=== PATIENT | female | born 1995 | race American Indian/Alaskan Native ===

== ENCOUNTER 2018-05-16 22:13 | Emergency (ER) | payer OTHER, MEDICAID ==
[2018-05-16 22:28] VITALS: BP 127/95
--- NOTE | 2018-05-16 23:37 | XRay Report ---
FINAL REPORT PROCEDURE: XR ELBOW 2V RT TECHNIQUE: RIGHT elbow radiographs, including AP and lateral views. HISTORY: Right elbow pain COMPARISON: No prior studies are available for comparison. FINDINGS: Fracture (s) and/or Dislocation(s): None . Alignment: Normal . Joint space(s): Normal . Soft tissues: Normal . Bone mineralization: Normal . Foreign bodies: None . IMPRESSION: Normal Examination
--- NOTE | 2018-05-16 23:38 | XRay Report ---
FINAL REPORT PROCEDURE: XR RIBS UNILAT 2V RT TECHNIQUE: Unilateral rib radiographs, 2 views of the RIGHT ribs. HISTORY: right rib pain COMPARISON: No prior studies are available for comparison. FINDINGS: Lungs: Normal. Pleural space: Normal. Pneumothorax: None. Bony thorax/ribs: No significant abnormality. IMPRESSION: Normal Examination.
--- NOTE | 2018-05-16 23:39 | XRay Report ---
FINAL REPORT PROCEDURE: XR SPINE LUMBOSACRAL 2-3V TECHNIQUE: Lumbar spine radiographs, including AP, lateral, and lumbosacral spot views. CPT 70343 HISTORY: lower back pain COMPARISON: No prior studies are available for comparison. FINDINGS: Alignment: There is mild degree dextroscoliosis.. Vertebral body heights/Disk spaces: Normal. Fracture(s): None. Facets: Normal. Bone mineralization: Normal. IMPRESSION: Mild degree dextroscoliosis which may be secondary to spasm Otherwise negative study.
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
== END 2018-05-17 01:07 | disposition home or self-care (01) ==
LOC: ED 22:13
DX: S29.012A Strain of muscle and tendon of back wall of thorax, initial encounter (principal); R07.81 Pleurodynia; M25.521 Pain in right elbow; K21.9 Gastro-esophageal reflux disease without esophagitis; Z90.49 Acquired absence of other specified parts of digestive tract; Z88.6 Allergy status to analgesic agent; V89.2XXA Person injured in unspecified motor-vehicle accident, traffic, initial encounter; Y93.89 Activity, other specified; Y92.488 Other paved roadways as the place of occurrence of the external cause; Y99.8 Other external cause status
CPT/HCPCS: 72100; 99283

== ENCOUNTER 2019-04-26 02:53 | Emergency (ER) | payer MEDICAID ==
[2019-04-26 03:03] VITALS: BP 144/72
[2019-04-26] MEDS ORDERED: SUBLIMAZE IV ONE (03:17)
[2019-04-26] MEDS ORDERED: ZOFRAN IV ONE (03:17)
--- NOTE | 2019-04-26 03:20 | Emergency Department Report ---
HPI - General Chief Complaint: Chest Pain Time Seen by Provider: 04/26/19 03:12 - [facility] HPI: Room 10 The patient is a 23-year-old female presenting with chief complaint of chest pain. The patient states she awakened at approximately midnight to feel as t aram her heart was hurting. She feels a squeezing substernal chest pain has been constant. The patient states she thought it was heartburn so she drank milk but her pain did not improve. Patient admits to shortness of breath but denies fever or cough Location: [See above] Duration: [See above] Quality: [See above] Severity: [See above] Modifying factors: [see above] Context: [see above] Mode of transportation: [not driving] ED Past Medical Hx - Past Medical History Previous Medical History?: Yes Hx GERD: Yes Hx Sickle Cell Disease: Yes - Surgical History Past Surgical History?: Yes Hx Cholecystectomy: Yes - Family History Family history: no significant - Social History Smoking Status: Never Smoker Substance Use Type: None (denies illicit drug use) - Medications Home Medications: Home Medications Medication Instructions Recorded Confirmed Last Taken Type Amoxicillin [Trimox CAP] 500 mg PO BID #14 capsule 02/25/16 Unknown Rx Cyclobenzaprine [Flexeril] 10 mg PO TID PRN 5 Days #15 tablet 05/17/18 Unknown Rx Famotidine [Pepcid] 20 mg PO BID #30 tablet 04/26/19 Unknown Rx HYDROcodone/APAP 5-325 [Lutts 1 - 2 each PO Q6HR PRN #14 tablet 04/26/19 Unknown Rx 5/325] ED Review of Systems ROS: Stated complaint: CP Other details as noted in HPI Constitutional: denies: fever Eyes: denies: eye pain ENT: denies: throat pain Respiratory: shortness of breath Cardiovascular: chest pain Endocrine: no symptoms reported Gastrointestinal: denies: abdominal pain Genitourinary: denies: dysuria Musculoskeletal: denies: back pain Neurological: denies: headache Physical Exam - Physical Exam Vital Signs: Vital Signs 04/26/19 02:56 Temperature 98.6 F Pulse Rate 89 Respiratory 18 Rate Blood Pressure 144/72 O2 Sat by Pulse 100 Oximetry Physical Exam: GENERAL: The patient is well-developed well-nourished female lying on stretcher not appearing to be in acute distress. [] HEENT: Normocephalic. Atraumatic. Extraocular motions are intact. Patient has moist mucous membranes. NECK: Supple. Trachea midline CHEST/LUNGS: Clear to auscultation. There is no respiratory distress noted. HEART/CARDIOVASCULAR: Regular. There is no tachycardia. There is no gallop rub or murmur. ABDOMEN: Abdomen is soft, nontender. Patient has normal bowel sounds. There is no abdominal distention. SKIN: There is no rash. There is no edema. There is no diaphoresis. NEURO: The patient is awake, alert, and oriented. The patient is cooperative. The patient has no focal neurologic deficits. The patient has normal speech MUSCULOSKELETAL: There is no evidence of acute injury. ED Course Vital Signs 04/26/19 02:56 Temperature 98.6 F Pulse Rate 89 Respiratory 18 Rate Blood Pressure 144/72 O2 Sat by Pulse 100 Oximetry - Reevaluation(s) Reevaluation #1: 04/26/19 05:55 Patient asleep but easily awakened and results discussed ED Medical Decision Making - Lab Data Result diagrams: 04/26/19 03:36 04/26/19 03:36 Laboratory Tests 04/26/19 04/26/19 04/26/19 03:32 03:36 03:36 WBC 6.6 RBC 3.87 Hgb 10.8 Hct 31.3 MCV 81 MCH 28 MCHC 34 RDW 14.4 Plt Count 110 L Lymph % (Auto) 25.9 [place] % (Auto) 7.6 H Eos % (Auto) 2.1 Baso % (Auto) 0.4 Lymph # 1.7 [place] # 0.5 Eos # 0.1 Baso # 0.0 Seg Neutrophils % 64.0 Seg Neutrophils # 4.3 Percent Retic 1.86 Sickle Cell Screen Positive PT 15.0 H INR 1.21 H APTT 33.7 Sodium Potassium Chloride Carbon Dioxide Anion Gap BUN Creatinine Estimated GFR BUN/Creatinine Ratio Glucose Calcium Total Creatine Kinase CK-MB (CK-2) CK-MB (CK-2) Rel Index Troponin T NT-Pro-B Natriuret Pep HCG, Qual Negative 04/26/19 03:36 WBC RBC Hgb Hct MCV MCH MCHC RDW Plt Count Lymph % (Auto) [place] % (Auto) Eos % (Auto) Baso % (Auto) Lymph # [place] # Eos # Baso # Seg Neutrophils % Seg Neutrophils # Percent Retic Sickle Cell Screen PT INR APTT Sodium 141 Potassium 3.6 Chloride 107.3 H Carbon Dioxide 23 Anion Gap 14 BUN 8 Creatinine 0.4 L Estimated GFR > 60 BUN/Creatinine Ratio 20 Glucose 111 H Calcium 8.5 Total Creatine Kinase 89 CK-MB (CK-2) 1.8 CK-MB (CK-2) Rel Index 2.0 Troponin T < 0.010 NT-Pro-B Natriuret Pep 23.26 HCG, Qual - EKG Data -: EKG Interpreted by Me EKG shows normal: sinus rhythm Rate: normal - EKG Data When compared to previous EKG there are: previous EKG unavailable Interpretation: other (no ischemic changes seen) - Radiology Data Radiology results: report reviewed (chest x-ray, VQ scan), image reviewed (chest x-ray, VQ scan) interpreted by me: Chest x-ray-no focal infiltrates, no pneumothorax [address] [address] XRay Report Signed Patient: LEVI BE MR #: [id number] : 1995 Acct:[id number] Age/Sex: 23 / F ADM Date: 04/26/19 Loc: ED Attending Dr: Ordering Physician: ALEC MARRUFO MD Date of Service: 04/26/19 Procedure(s): XR chest 1V ap Accession Number(s): [id number] cc: ALEC MARRUFO MD Fluoro Time In Minutes: CHEST 1 VIEW INDICATION / CLINICAL INFORMATION: Chest Pain. COMPARISON: None available. FINDINGS: SUPPORT DEVICES: None. HEART / MEDIASTINUM: No significant abnormality. LUNGS / PLEURA: No significant pulmonary or pleural abnormality. No pneumothorax. ADDITIONAL FINDINGS: No significant additional findings. IMPRESSION: 1. No acute findings. Signer Name: Rodrigo Christian MD Signed: 04/26/2019 3:45 AM Workstation Name: [id number] Transcribed By: [place] Dictated By: Rodrigo Christian MD Electronically Authenticated By: Rodrigo Christian MD Signed Date/Time: 04/26/19344 DD/ 3 TD/T T: [address] [address] Nuclear Medicine Report Signed Patient: LEVI BE MR #: [id number] : 1995 Acct:[id number] Age/Sex: 23 / F ADM Date: 04/26/19 Loc: ED Attending Dr: Ordering Physician: ALEC MARRUFO MD Date of Service: 04/26/19 Procedure(s): NM lung scan perf/vent Accession Number(s): [id number] cc: ALEC MARRUFO MD NM lung scan perf/vent INDICATION / CLINICAL INFORMATION: chest pain, shortness of breath. TECHNIQUE: Dose / Agent / Route: 3.66mCi technetium 99m MAA IV and 25mCi [id number] inhaled. COMPARISON: 04/26/2019 AP chest x-ray FINDINGS: Ventilation and perfusion imaging is normal. IMPRESSION: 1. Normal ventilation/perfusion lung scan, low probability for pulmonary embolism. Signer Name: Rodrigo Christian MD Signed: 04/26/2019 5:08 AM Workstation Name: [id number] Transcribed By: [place] Dictated By: Rodrigo Christian MD Electronically Authenticated By: Rodrigo Christian MD Signed Date/Time: 04/26/19507 DD/ 050 TD/TT: - Differential Diagnosis acute chest syndrome, ACS, PE, pericarditis, GERD, costochondritis Critical care attestation.: If time is entered above; I have spent that time in minutes in the direct care of this critically ill patient, excluding procedure time. ED Disposition Clinical Impression: Atypical chest pain Disposition: DC-01 TO HOME OR SELFCARE Is pt being admited?: No Does the pt Need Aspirin: No Condition: Stable Instructions: Chest Pain (ED) Additional Instructions: Return to the emergency department immediately should you develop worsening symptoms, fever, inability to tolerate food or liquid or any other concerns. 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 Coates, warehouse loader [Other] - TREVOR Time of Disposition: 05:57
--- NOTE | 2019-04-26 03:49 | XRay Report ---
CHEST 1 VIEW INDICATION / CLINICAL INFORMATION: Chest Pain. COMPARISON: None available. FINDINGS: SUPPORT DEVICES: None. HEART / MEDIASTINUM: No significant abnormality. LUNGS / PLEURA: No significant pulmonary or pleural abnormality. No pneumothorax. ADDITIONAL FINDINGS: No significant additional findings. IMPRESSION: 1. No acute findings. Signer Name: Rodrigo Christian MD Signed: 04/26/2019 3:45 AM Workstation Name: [id number]
[2019-04-26 03:58] LABS: Basophils % (Auto) 0.4 % (0.0-1.8); Eosinophils # (Auto) 0.1 K/mm3 (0.0-0.4); Eosinophils % (Auto) 2.1 % (0.0-4.3); Hematocrit 31.3 % (30.3-42.9); Hemoglobin 10.8 gm/dl (10.1-14.3); Lymphocytes # (Auto) 1.7 K/mm3 (1.2-5.4); Lymphocytes % (Auto) 25.9 % (13.4-35.0); Mean Corpuscular HGB Conc 34 % (30-34); Mean Corpuscular Volume 81 fl (79-97); Monocytes # (Auto) 0.5 K/mm3 (0.0-0.8); Monocytes % (Auto) 7.6 % (0.0-7.3); Platelet Count 110 K/mm3 (140-440); Red Blood Count 3.87 M/mm3 (3.65-5.03); Red Cell Distribution Width 14.4 % (13.2-15.2)
[2019-04-26 04:10] LABS: BUN/Creatinine Ratio 20; Blood Urea Nitrogen 8 mg/dL (7-17); Calcium 8.5 mg/dL (8.4-10.2); Hemolysis Index 9
[2019-04-26 04:11] LABS: Creatine Kinase MB 1.8 ng/mL (0.0-4.0)
[2019-04-26 04:21] LABS: INR 1.21 (0.87-1.13)
[2019-04-26 04:22] LABS: Partial Thromboplastin Time 33.7 Sec. (24.2-36.6)
--- NOTE | 2019-04-26 05:13 | Nuclear Medicine Report ---
NM lung scan perf/vent INDICATION / CLINICAL INFORMATION: chest pain, shortness of breath. TECHNIQUE: Dose / Agent / Route: 3.66mCi technetium 99m MAA IV and 25mCi [id number] inhaled. COMPARISON: 04/26/2019 AP chest x-ray FINDINGS: Ventilation and perfusion imaging is normal. IMPRESSION: 1. Normal ventilation/perfusion lung scan, low probability for pulmonary embolism. Signer Name: Rodrigo Christian MD Signed: 04/26/2019 5:08 AM Workstation Name: [email or web address]
== END 2019-04-26 06:12 | disposition home or self-care (01) ==
LOC: ED 02:53
DX: R07.89 Other chest pain (principal); R06.02 Shortness of breath; K21.0 Gastro-esophageal reflux disease with esophagitis; Z90.49 Acquired absence of other specified parts of digestive tract; Z79.899 Other long term (current) drug therapy; Z88.6 Allergy status to analgesic agent
CPT/HCPCS: 36415; 71045; 78582; 80048; 82550; 82553; 83880; 84484; 84703; 85025; 85045; 85610; 85660; 85730; 93005; 93010; 96374; 96375; 99284; A9540; A9558; J2405; J3010